=== PATIENT | male | born 1935 | race Caucasian/White ===

== ENCOUNTER 2016-11-17 20:00 | Inpatient (IN) | payer MEDICARE, BC ==
[~2016-11-17] VITALS: Ht 175.3 cm; Wt 92.8 kg
[~2016-11-17 20:00] MED LIST changes: -CEFDINIR300 MG PO; -PREDNISONE10 MG PO; -TESSALON PERLE100 M1 PO; -ZITHROMAX500 M2 PO
[2016-11-17 21:44] VITALS: BP 120/48
[2016-11-17 23:00] VITALS: BP 124/54
[2016-11-18 02:59] VITALS: BP 127/55
[2016-11-18 06:17] VITALS: BP 132/57
[2016-11-18 11:16] VITALS: BP 101/53
[2016-11-18 15:34] VITALS: BP 114/49
[2016-11-18 18:06] VITALS: BP 141/61
[2016-11-18 23:12] VITALS: BP 104/41
[2016-11-19 02:59] VITALS: BP 121/57
[2016-11-19 06:23] VITALS: BP 112/45
[2016-11-19] MEDS ORDERED: ZITHROMAX500 M2 PO (09:47)
[2016-11-19] MEDS ORDERED: CEFDINIR300 MG PO (09:48)
[2016-11-19] MEDS ORDERED: PREDNISONE10 MG PO (09:49)
[2016-11-19] MEDS ORDERED: TESSALON PERLE100 M1 PO (09:50)
[2016-11-19 10:24] VITALS: BP 112/45
[2016-11-19 12:18] VITALS: BP 113/55
== END 2016-11-19 12:02 | disposition home or self-care (01) | DRG 190 ==
LOC: MED/SURG 20:00
PROVIDERS: ADMIT Nurse Practitioner Family
DX: J44.0 Chronic obstructive pulmonary disease with (acute) lower respiratory infection (principal); J18.9 Pneumonia, unspecified organism; E11.9 Type 2 diabetes mellitus without complications; Z66 Do not resuscitate; E03.9 Hypothyroidism, unspecified; R53.83 Other fatigue; Z79.84 Long term (current) use of oral hypoglycemic drugs; Z88.0 Allergy status to penicillin
CPT/HCPCS: J0456; J0696; J1650; J1940; J2930; J7050

== ENCOUNTER → 2016-11-17 | Outpatient (CLI) | payer MEDICARE, BC ==
[~2016-11-17] VITALS: Ht 175.3 cm; Wt 100.9 kg
[~2016-11-17] MED LIST: ACTOS30 MG PO; AMARYL PO; AMBIEN10 MG PO; ARICEPT10 M1 PO; ARICEPT10 MG PO; BUSPAR 15MG TAB15 MG PO; BUSPIRONE; CEFDINIR300 MG PO; COLACE100 M1 PO; DEPAKOTE DR500 MG PO; DEPAKOTE500 MG PO; DIABETA5 MG PO; DITROPAN 5MG TAB5 MG PO; FLOMAX 0.40.4 MG/CAP PO; GOOD NEIGH1200 MG/15 PO; GOOD NEIGHBOR150 MG PO; GOOD NEIGHBOR180 MG PO; IBU400 MG PO; IMODIUM 2MG CAPS2 MG PO; NAMENDA 10MG TA10 MG PO; NAMENDA XR28 MG PO; PREDNISONE10 MG PO; PREVACID 30MG30 M1 PO; PROTONIX TR40 M1 PO; SINGULAIR 110 MG/TAB PO; SINGULAIR10 MG PO; SYNTHROID0.175 MG PO; SYNTHROID175 MCG PO; TESSALON PERLE100 M1 PO; TUMS REGULAR S500 MG PO; TYLENOL 325MG325 MG PO; ZITHROMAX500 M2 PO
[2016-11-17 16:30] VITALS: BP 130/74
[2016-11-17 18:32] VITALS: BP 116/48
[2016-11-17 20:45] VITALS: BP 120/48
== END ==
LOC: RAD 16:24
DX: R50.9 Fever, unspecified (principal); R05 Cough; A49.01 Methicillin susceptible Staphylococcus aureus infection, unspecified site
CPT/HCPCS: J0696

== ENCOUNTER → 2017-01-15 | Outpatient (CLI) | payer MEDICARE, BC ==
[~2017-01-15] MED LIST changes: +CEFDINIR300 MG PO; +PREDNISONE10 MG PO; +TESSALON PERLE100 M1 PO; +ZITHROMAX500 M2 PO
== END ==
LOC: LAB 11:13
DX: J18.9 Pneumonia, unspecified organism (principal); E03.4 Atrophy of thyroid (acquired); C84.79 Anaplastic large cell lymphoma, ALK-negative, extranodal and solid organ sites; R20.2 Paresthesia of skin

== ENCOUNTER 2017-02-25 12:59 | Outpatient (RCR) | payer MEDICARE, BC | END 2017-02-25 13:30 | disposition home or self-care (01) | LOC: SPEECH 12:59 | DX: R13.10 Dysphagia, unspecified (principal); R05 Cough; C84.49 Peripheral T-cell lymphoma, not elsewhere classified, extranodal and solid organ sites ==

== ENCOUNTER → 2017-11-30 | Outpatient (CLI) | payer MEDICARE, BC ==
[2017-11-30 14:44] LABS: EOS # 0.1 (0.04-0.40); EOS % 1.4 % (0.0-4.0); HEMATOCRIT 37.4 % (42.0-52.0); HEMOGLOBIN 12.7 g/dL (13.5-18.0); LYMPH# 2.7 (1.50-4.00); MEAN CELL VOLUME 96 fl (78-100); MEAN CORPUSCULAR HEMOGLOBIN 33 pg (27-31); MEAN CORPUSCULAR HGB CONC 34 g/dL (33-37); MEAN PLATELET VOLUME 10.1 fl (7.4-10.4); MONO # 0.6 (0.20-0.80); NEU # 2.9 (1.40-6.50); PLATELET COUNT 169 K/mm3 (130-400); RED BLOOD COUNT 3.89 M/mm3 (4.20-5.60); RED CELL DISTRIBUTION WIDTH 14.1 % (11.5-14.5); WHITE BLOOD COUNT 6.3 K/mm3 (4.8-10.8)
[2017-11-30 15:00] LABS: ALBUMIN 4.1 g/dL (3.5-5.0); BUN/CREATININE RATIO 12.4 (6.0-26.0); CALCIUM 8.7 mg/dL (8.4-10.2); POTASSIUM 4.4 mmol/L (3.6-5.0); TOTAL BILIRUBIN 0.7 mg/dL (0.2-1.3); TOTAL PROTEIN 8.1 g/dL (6.3-8.2)
== END ==
LOC: LAB 14:27
PROVIDERS: Internal Medicine
DX: Z12.5 Encounter for screening for malignant neoplasm of prostate (principal); C84.40 Peripheral T-cell lymphoma, not elsewhere classified, unspecified site; E11.9 Type 2 diabetes mellitus without complications

== ENCOUNTER → 2018-10-07 | Outpatient (CLI) | payer MEDICARE, BC ==
[2018-10-07 14:47] LABS: BASO # 0.1 (0.02-0.10); EOS # 0.3 (0.04-0.40); EOS % 2.9 % (0.0-4.0); HEMATOCRIT 33.7 % (42.0-52.0); HEMOGLOBIN 10.6 g/dL (13.5-18.0); MEAN CELL VOLUME 86 fl (78-100); MEAN CORPUSCULAR HEMOGLOBIN 27 pg (27-31); MEAN CORPUSCULAR HGB CONC 32 g/dL (33-37); MEAN PLATELET VOLUME 11.2 fl (7.4-10.4); NEU # 5.3 (1.40-6.50); PLATELET COUNT 263 K/mm3 (130-400); RED CELL DISTRIBUTION WIDTH 14.3 % (11.5-14.5); WHITE BLOOD COUNT 10.6 K/mm3 (4.8-10.8)
[2018-10-07 15:17] LABS: ALBUMIN 3.5 g/dL (3.4-4.8); CALCIUM 8.7 mg/dL (8.3-10.5); POTASSIUM 4.2 mmol/L (3.5-5.1); TOTAL BILIRUBIN 0.6 mg/dL (0.2-1.2); TOTAL PROTEIN 6.9 g/dL (6.2-8.1)
[2018-10-07 16:56] LABS: ERYTHROCYTE SEDIMENTATION RATE 68 mm/hr (0-20)
== END ==
LOC: LAB 14:12
PROVIDERS: Internal Medicine
DX: E11.9 Type 2 diabetes mellitus without complications (principal); C84.49 Peripheral T-cell lymphoma, not elsewhere classified, extranodal and solid organ sites; J18.9 Pneumonia, unspecified organism; E03.9 Hypothyroidism, unspecified; R20.2 Paresthesia of skin

== ENCOUNTER → 2018-10-20 | Outpatient (CLI) | payer MEDICARE, BC | LOC: LAB 08:33 | DX: C84.40 Peripheral T-cell lymphoma, not elsewhere classified, unspecified site (principal); J18.9 Pneumonia, unspecified organism; E03.9 Hypothyroidism, unspecified; R20.2 Paresthesia of skin ==

== ENCOUNTER 2018-11-02 07:47 | Emergency (ER) | payer MEDICARE, BC ==
[~2018-11-02] VITALS: Ht 175.3 cm; Wt 94.5 kg
[2018-11-02] MEDS ORDERED: BENEFIBER1 POW PO (08:25)
[2018-11-02] MEDS ORDERED: FLUTICASON0.05 MG/AC NS (08:27)
[2018-11-02] MEDS ORDERED: SYNTHROID0.15 MG PO (08:28)
[2018-11-02] MEDS ORDERED: PIOGLITAZONE HC15 MG PO (08:29)
[2018-11-02] MEDS ORDERED: PEPTO-BISMOL262 M1 PO (08:31)
[2018-11-02] MEDS ORDERED: DELSYM30 MG/5 M1 PO (08:32)
[2018-11-02] MEDS ORDERED: MEDI-FIRST CHE7.6 MG MM (08:33)
[2018-11-02 08:37] VITALS: BP 155/70
== END 2018-11-02 08:37 | disposition home or self-care (01) ==
LOC: ED 07:47
DX: R04.0 Epistaxis (principal); J45.909 Unspecified asthma, uncomplicated; E11.9 Type 2 diabetes mellitus without complications; G30.0 Alzheimer's disease with early onset; F02.80 Dementia in other diseases classified elsewhere, unspecified severity, without behavioral disturbance, psychotic disturbance, mood disturbance, and anxiety; E03.9 Hypothyroidism, unspecified; Z88.0 Allergy status to penicillin; Z88.2 Allergy status to sulfonamides; Z79.51 Long term (current) use of inhaled steroids

== ENCOUNTER → 2018-11-10 | Outpatient (CLI) | payer MEDICARE, BC ==
[2018-11-02 08:37] VITALS: BP 155/70
[~2018-11-10] MED LIST changes: +BENEFIBER1 POW PO; +DELSYM30 MG/5 M1 PO; +FLUTICASON0.05 MG/AC NS; +MEDI-FIRST CHE7.6 MG MM; +PEPTO-BISMOL262 M1 PO; +PIOGLITAZONE HC15 MG PO; +SYNTHROID0.15 MG PO
[2018-11-10 18:00] LABS: URINE APPEARANCE CLEAR; URINE COLOR YELLOW
[2018-11-10 18:01] LABS: URINE BILIRUBIN NEGATIVE (NEGATIVE); URINE BLOOD NEGATIVE (NEGATIVE); URINE GLUCOSE NEGATIVE (NEGATIVE); URINE KETONE NEGATIVE (NEGATIVE); URINE LEUKOCYTE ESTERASE NEGATIVE (NEGATIVE); URINE NITRATE NEGATIVE (NEGATIVE); URINE PROTEIN(semi-quant) NEGATIVE (NEGATIVE); URINE UROBILINOGEN NORMAL (NORMAL); URINE WBC 0-1 /hpf (0-3)
== END ==
LOC: LAB 17:03
PROVIDERS: Internal Medicine
DX: N30.00 Acute cystitis without hematuria (principal)

== ENCOUNTER → 2020-02-07 | Outpatient (CLI) | payer MEDICARE, BC ==
[2020-02-07 08:47] LABS: EOS # 0.2 (0.04-0.40); EOS % 2.4 % (0.0-4.0); HEMATOCRIT 35.4 % (42.0-52.0); HEMOGLOBIN 11.4 g/dL (13.5-18.0); MEAN CELL VOLUME 98 fl (78-100); MEAN CORPUSCULAR HEMOGLOBIN 31 pg (27-31); MEAN CORPUSCULAR HGB CONC 32 g/dL (33-37); MEAN PLATELET VOLUME 10.4 fl (7.4-10.4); MONO # 0.7 (0.20-0.80); NEU # 4.2 (1.40-6.50); PLATELET COUNT 167 K/mm3 (130-400); RED BLOOD COUNT 3.63 M/mm3 (4.20-5.60); RED CELL DISTRIBUTION WIDTH 14.4 % (11.5-14.5); WHITE BLOOD COUNT 7.2 K/mm3 (4.8-10.8)
[2020-02-07 08:56] LABS: ALBUMIN 3.5 g/dL (3.4-4.8); POTASSIUM 3.7 mmol/L (3.5-5.1)
[2020-02-07 08:58] LABS: TOTAL PROTEIN 6.9 g/dL (6.2-8.1)
[2020-02-07 09:00] LABS: TOTAL BILIRUBIN 0.7 mg/dL (0.2-1.2)
[2020-02-07 10:15] LABS: ERYTHROCYTE SEDIMENTATION RATE 28 mm/hr (0-20)
== END ==
LOC: LAB 08:25
PROVIDERS: Internal Medicine
DX: Z12.5 Encounter for screening for malignant neoplasm of prostate (principal); E11.9 Type 2 diabetes mellitus without complications; K90.9 Intestinal malabsorption, unspecified; J18.9 Pneumonia, unspecified organism; E03.9 Hypothyroidism, unspecified; C84.49 Peripheral T-cell lymphoma, not elsewhere classified, extranodal and solid organ sites; R20.2 Paresthesia of skin; R41.3 Other amnesia

== ENCOUNTER → 2020-03-25 | Outpatient (CLI) | payer MEDICARE, BC | LOC: LAB 09:37 | DX: E03.4 Atrophy of thyroid (acquired) (principal); E55.9 Vitamin D deficiency, unspecified; K90.9 Intestinal malabsorption, unspecified ==

== ENCOUNTER → 2020-10-15 | Outpatient (CLI) | payer MEDICARE, BC ==
[2020-10-15 11:58] LABS: BASO # 0.05 (0.02-0.10); EOS # 0.14 (0.04-0.40); EOS % 1.7 % (0.0-4.0); HEMATOCRIT 34.4 % (42.0-52.0); HEMOGLOBIN 11.5 g/dL (13.5-18.0); LYMPH# 2.11 (1.50-4.00); MEAN CELL VOLUME 97 fl (78-100); MEAN CORPUSCULAR HEMOGLOBIN 32 pg (27-31); MEAN CORPUSCULAR HGB CONC 33 g/dL (33-37); MEAN PLATELET VOLUME 10.9 fl (7.4-10.4); MONO # 0.58 (0.20-0.80); NEU # 5.17 (1.40-6.50); RED BLOOD COUNT 3.55 M/mm3 (4.20-5.60); RED CELL DISTRIBUTION WIDTH 13.7 % (11.5-14.5); WHITE BLOOD COUNT 8.1 K/mm3 (4.8-10.8)
[2020-10-15 12:58] LABS: ERYTHROCYTE SEDIMENTATION RATE 12 mm/hr (0-20)
[2020-10-15 13:16] LABS: ALBUMIN 3.5 g/dL (3.4-4.8); POTASSIUM 4.5 mmol/L (3.5-5.1)
[2020-10-15 13:18] LABS: CALCIUM 8.5 mg/dL (8.3-10.5)
[2020-10-15 13:19] LABS: TOTAL PROTEIN 6.8 g/dL (6.2-8.1)
[2020-10-15 13:21] LABS: TOTAL BILIRUBIN 0.7 mg/dL (0.2-1.2)
[2020-10-15 13:25] LABS: MAGNESIUM 1.81 mg/dL (1.60-2.60)
== END ==
LOC: LAB 11:25
PROVIDERS: Internal Medicine
DX: K90.9 Intestinal malabsorption, unspecified (principal); E11.9 Type 2 diabetes mellitus without complications; E03.4 Atrophy of thyroid (acquired)

== ENCOUNTER 2021-06-12 16:21 | Emergency (ER) | payer MEDICARE, BC ==
[~2021-06-12] VITALS: Wt 68.2 kg
[2021-06-12 17:00] LABS: HEMATOCRIT 36.3 % (42.0-52.0); HEMOGLOBIN 11.5 g/dL (13.5-18.0); LYMPH# 1.36 K/mm3 (1.50-4.00); MEAN CELL VOLUME 97 fl (78-100); MEAN CORPUSCULAR HEMOGLOBIN 31 pg (27-31); MEAN CORPUSCULAR HGB CONC 32 g/dL (33-37); MEAN PLATELET VOLUME 11.5 fl (7.4-10.4); MONO # 1.05 K/mm3 (0.20-0.80); NEU # 17.06 K/mm3 (1.40-6.50); PLATELET COUNT 142 K/mm3 (130-400); RED BLOOD COUNT 3.75 M/mm3 (4.20-5.60); RED CELL DISTRIBUTION WIDTH 13.6 % (11.5-14.5); WHITE BLOOD COUNT 19.5 K/mm3 (4.8-10.8)
[2021-06-12 17:15] LABS: ALBUMIN 3.1 g/dL (3.4-4.8)
[2021-06-12 17:16] LABS: POTASSIUM 4.1 mmol/L (3.5-5.1)
[2021-06-12 17:17] LABS: CALCIUM 9.4 mg/dL (8.3-10.5)
[2021-06-12 17:18] LABS: TOTAL PROTEIN 6.9 g/dL (6.2-8.1)
[2021-06-12 17:20] LABS: TOTAL BILIRUBIN 0.8 mg/dL (0.2-1.2)
[2021-06-12 17:45] LABS: PH-URINE 5.5 (5.0 - 8.0); URINE APPEARANCE CLEAR; URINE BILIRUBIN NEGATIVE (NEGATIVE); URINE COLOR DARK YELLOW; URINE GLUCOSE 50 mg/dL (NEGATIVE); URINE KETONE 1+ (NEGATIVE); URINE NITRATE NEGATIVE (NEGATIVE); URINE PROTEIN(semi-quant) TRACE (NEGATIVE); URINE UROBILINOGEN NORMAL (NORMAL)
[2021-06-12 17:46] LABS: URINE BLOOD 50 ery/uL (NEGATIVE); URINE LEUKOCYTE ESTERASE NEGATIVE (NEGATIVE); URINE MUCUS PRESENT (NOT PRESENT)
[2021-06-12 19:00] VITALS: BP 151/66
[2021-06-12] MEDS ORDERED: NYSTATIN1000000 UN MC (22:15)
[2021-06-12] MEDS ORDERED: IMODIUM A-D2 M2 PO (22:17)
[2021-06-12] MEDS ORDERED: AYR SALINE NASA22 ML NS (22:18)
[2021-06-12] MEDS ORDERED: MUPIROCIN CALCIUM2% TP (22:26)
[2021-06-12] MEDS ORDERED: MYTREX OINT 10015 GM TP (22:28)
[2021-06-12] MEDS ORDERED: TRIAMC TP (22:29)
[2021-06-12] MEDS ORDERED: NYSTATIN TP (22:29)
[2021-06-12] MEDS ORDERED: VITAMIN D21250 MCG PO (22:31)
[2021-06-12] MEDS ORDERED: 24 HOUR NASAL16.9 ML NS (22:34)
[2021-06-12] MEDS ORDERED: BUSPIRONE HYDRO10 MG PO (22:35)
[2021-06-12] MEDS ORDERED: LEVOTHYROXINE125 MCG PO (22:36)
[2021-06-13] MEDS ORDERED: [UNRECOGNIZED DRUG - SUPPLY] (14:02)
== END 2021-06-12 19:00 | disposition other institution (70) ==
LOC: ED 16:21
PROVIDERS: Physician Assistant
DX: R05.9 Cough, unspecified (principal)
CPT/HCPCS: J0696; J7030

== ENCOUNTER 2021-06-12 18:51 | Inpatient (IN) | payer MEDICARE, BC ==
[~2021-06-12] VITALS: Ht 172.7 cm; Wt 65.4 kg
[2021-06-12 19:00] VITALS: BP 151/60
[2021-06-12 20:46] LABS: POTASSIUM 3.3 mmol/L (3.5-5.1)
[2021-06-12 20:48] LABS: CALCIUM 8.8 mg/dL (8.3-10.5)
[2021-06-12 20:54] LABS: MAGNESIUM 1.61 mg/dL (1.60-2.60)
[2021-06-12] MEDS ORDERED: NYSTATIN1000000 UN MC (22:15)
[2021-06-12] MEDS ORDERED: IMODIUM A-D2 M2 PO (22:17)
[2021-06-12] MEDS ORDERED: AYR SALINE NASA22 ML NS (22:18)
[2021-06-12] MEDS ORDERED: MUPIROCIN CALCIUM2% TP (22:26)
[2021-06-12] MEDS ORDERED: MYTREX OINT 10015 GM TP (22:28)
[2021-06-12] MEDS ORDERED: TRIAMC TP (22:29)
[2021-06-12] MEDS ORDERED: NYSTATIN TP (22:29)
[2021-06-12] MEDS ORDERED: VITAMIN D21250 MCG PO (22:31)
[2021-06-12] MEDS ORDERED: 24 HOUR NASAL16.9 ML NS (22:34)
[2021-06-12] MEDS ORDERED: BUSPIRONE HYDRO10 MG PO (22:35)
[2021-06-12] MEDS ORDERED: LEVOTHYROXINE125 MCG PO (22:36)
[2021-06-12 22:45] VITALS: BP 153/65
[2021-06-13 02:02] VITALS: BP 153/65
[2021-06-13 05:59] VITALS: BP 170/64
[2021-06-13 07:42] LABS: BASO # 0.01 K/mm3 (0.02-0.10); HEMATOCRIT 31.8 % (42.0-52.0); HEMOGLOBIN 10.5 g/dL (13.5-18.0); LYMPH# 1.82 K/mm3 (1.50-4.00); MEAN CELL VOLUME 94 fl (78-100); MEAN CORPUSCULAR HEMOGLOBIN 31 pg (27-31); MEAN CORPUSCULAR HGB CONC 33 g/dL (33-37); MEAN PLATELET VOLUME 11.6 fl (7.4-10.4); MONO # 0.74 K/mm3 (0.20-0.80); NEU # 14.32 K/mm3 (1.40-6.50); PLATELET COUNT 124 K/mm3 (130-400); RED CELL DISTRIBUTION WIDTH 13.7 % (11.5-14.5); WHITE BLOOD COUNT 16.9 K/mm3 (4.8-10.8)
[2021-06-13 07:46] LABS: ALBUMIN 2.6 g/dL (3.4-4.8); POTASSIUM 3.6 mmol/L (3.5-5.1)
[2021-06-13 07:47] LABS: CALCIUM 8.9 mg/dL (8.3-10.5)
[2021-06-13 07:48] LABS: TOTAL PROTEIN 6.1 g/dL (6.2-8.1)
[2021-06-13 07:50] LABS: TOTAL BILIRUBIN 1.1 mg/dL (0.2-1.2)
[2021-06-13 10:09] VITALS: BP 161/69
[2021-06-13] MEDS ORDERED: [UNRECOGNIZED DRUG - SUPPLY] (14:02)
== END 2021-06-13 18:19 | disposition hospice, inpatient (51) | DRG 202 ==
LOC: MED/SURG 18:51
PROVIDERS: ADMIT Physician Assistant
DX: J45.909 Unspecified asthma, uncomplicated (principal); A41.9 Sepsis, unspecified organism; K90.9 Intestinal malabsorption, unspecified; E87.0 Hyperosmolality and hypernatremia; K21.9 Gastro-esophageal reflux disease without esophagitis; N28.9 Disorder of kidney and ureter, unspecified; N40.0 Benign prostatic hyperplasia without lower urinary tract symptoms; F03.90 Unspecified dementia, unspecified severity, without behavioral disturbance, psychotic disturbance, mood disturbance, and anxiety; Z66 Do not resuscitate; R62.7 Adult failure to thrive; F04 Amnestic disorder due to known physiological condition; E66.9 Obesity, unspecified; E11.9 Type 2 diabetes mellitus without complications; E55.9 Vitamin D deficiency, unspecified; E86.0 Dehydration; H91.90 Unspecified hearing loss, unspecified ear; Z85.841 Personal history of malignant neoplasm of brain; Z88.0 Allergy status to penicillin; Z88.2 Allergy status to sulfonamides; Z88.1 Allergy status to other antibiotic agents
CPT/HCPCS: J1650; J1815; J1956